=== PATIENT | female | born 1975 | race Two or more races ===

== ENCOUNTER 2017-11-10 01:53 | Emergency (ER) | payer OTHER ==
[~2017-11-10] VITALS: Ht 162.6 cm; Wt 86.2 kg
[~2017-11-10 01:53] MED LIST: NAPROXEN500 M1 PO
[2017-11-10] MEDS ORDERED: AMLODIPINE-OLM1 EACH (02:07)
[2017-11-10] MEDS ORDERED: NORFLEX100MG PO (09:27)
== END 2017-11-10 09:40 | disposition home or self-care (01) ==
LOC: ER 01:53 → CPU-OBS 02:34 → ER 02:34
DX: R07.89 Other chest pain (principal); M25.512 Pain in left shoulder; R51 Headache
CPT/HCPCS: G0378; G0379; 70450; 93005